=== PATIENT | male | born 1980 | race African-American/Black ===

== ENCOUNTER 2020-02-27 10:54 | Emergency (ER) | payer OTHER, SELFPAY ==
[2020-02-27] VITALS (24 sets, daily range): BP systolic 105–161; BP diastolic 72–97; PULSE 69–101; RESP 10–25; TEMP 36.5; O2SAT 95–100
--- NOTE | ~2020-02-27 | XR_ITS ---
EXAMINATION: XR chest 1V portable INDICATION: Chest pain and cough TECHNIQUE: Portable AP chest at 1140 hours COMPARISON: None available FINDINGS: The lungs are free of acute opacities. There is no pleural effusion or pneumothorax. The ca rdiomediastinal silhouette is normal. The visualized bones and soft tissues are unremarkable. Calcifi ed right paratracheal lymph nodes are consistent with old granulomatous disease. IMPRESSION: 1. No acute cardiopulmonary abnormality. Reviewed, dictated and finalized at location A.
--- NOTE | 2020-02-27 11:25 | ED.CHESTPAIN ---
HPI - Chest Pain General Chief Complaint: Chest Pain Stated Complaint: Chest Pain Time Seen by Provider: 02/27/20 11:08 Source: patient Mode of arrival: ambulatory Limitations: no limitations History of Present Illness HPI narrative: This is a 40 year old male that presents to the ER for chest pain x 3 days. Reports constant sharp upper chest pain. Associated with cough, sore throat. Also reports left lower quadrant abdominal pain and nausea that has been constant as well. Reports he works at [employer] and several coworkers have tested positive for coronavirus. Reports some urinary frequency. Denies fever, shortness of breath, vomiting, diarrhea, dysuria or hematuria. Related Data Home Medications Medication Instructions Recorded Confirmed Jardiance 25 mg PO DAILY 02/27/20 02/27/20 glipizide 10 mg PO BID 02/27/20 02/27/20 lisinopril 40 mg PO DAILY 02/27/20 02/27/20 metformin 1,000 mg PO BID 02/27/20 02/27/20 metoprolol succinate 50 mg PO DAILY 02/27/20 02/27/20 rosuvastatin 40 mg PO HS 02/27/20 02/27/20 Allergies Allergy/AdvReac Type Severity Reaction Status Date / Time No Known Allergies Allergy Verified 02/27/20 11:10 Review of Systems Review of Systems: Narrative: CONSTITUTIONAL: Denies fever ENT: Reports rhinorrhea, congestion, sore throat. Denies otalgia. CARDIOVASCULAR: Reports chest pain. Denies palpitations, or edema. RESPIRATORY: Reports cough. Denies dyspnea. GASTROINTESTINAL: Reports abdominal pain, nausea. Denies vomiting, or diarrhea. GENITOURINARY: Denies dysuria or hematuria. All systems reviewed & are unremarkable except as noted in HPI and below PMFSH Past Medical History Medical History (Updated 02/27/20 @ 15:28 by Lorelei Baxter PA-C) History of asthma History of diabetes mellitus History of hyperlipidemia History of hypertension Social History Social History (Updated 02/27/20 @ 11:36 by Lorelei Baxter PA-C) Smoking status: Never smoker Substance use: never Gender identity (if verbalized by the patient): Male Exam Narrative: Exam Narrative: GENERAL: Well-appearing, obese, and in no acute distress. HEAD: Normocephalic, atraumatic. EYES: EOMI. ENT: Nares clear, no rhinorrhea or epistaxis. Mucous membranes moist. Oropharynx without tonsillar hypertrophy exudate or other lesions. Bilateral TMs pearly jane non-bulging NECK: Supple. No adenopathy or masses. No carotid bruits or JVD CHEST: Clear to auscultation. No respiratory distress. No wheezes rales or rhonchi HEART: Regular rate and rhythm. No murmur heard. Normal peripheral pulses. ABDOMEN: Soft, nontender, nondistended, normal active bowel sounds. EXTREMITIES: Normal range of motion. No edema. SKIN: Warm, dry, no rash. NEURO: No focal deficits. Alert and oriented x3. PSYCH: Normal mood and affect Course Consultations Consultation #1: Spoke with patient's primary care doctor about work-up will follow-up in clinic Date: 02/27/20 Time: 15:25 Vital Signs Vital signs: Vital Signs Pulse Oximetry 100 02/27/20 11:02 Temperature 97.7 F 02/27/20 11:06 Pulse Rate 101 H 02/27/20 14:15 Respiratory Rate 16 02/27/20 14:15 Blood Pressure 158/93 H 02/27/20 13:01 Pulse Oximetry 99 02/27/20 13:15 MDM - Chest Pain MDM Narrative Medical decision making narrative: Patient presents to the emergency department for cold symptoms, chest pain, and abdominal pain x3 days. Patient is afebrile and nontoxic-appearing. Vitals are normal other than mild elevation in blood pressure to systolic in the 150s. CBC is without acute changes. Metabolic panel with elevation in blood glucose to 438. Lactic acid initially elevated to 2.7. Patient given IV fluids and insulin with improvement in blood sugar and normalization of lactic acid. CRP is not elevated. Baseline and 3-hour troponin are not elevated. EKG and chest x-ray without concerning findings. PERC criteria negative. UA without evidence of infection. Beta hydroxybutyrate i
[2020-02-27] MEDS: ONDANSETRON INJ 4 MG/2 ML VIAL IV PUSH (11:38)
[2020-02-27 11:39] LABS: Basophils Percent Auto 0.5 % (0.2-1.2); Eosinophils Absolute Auto 0.1 K/mm3 (0-0.3); Eosinophils Percent Auto 2.6 % (0-4.4); Hematocrit 46.3 % (42.0-52.0); Hemoglobin 15.6 g/dL (14.0-18.0); Immature Granulocyte Absolute 0.01 K/mm3 (0.00-0.031); Immature Granulocyte Percent A 0.2 % (0-0.5); Lymphocytes Absolute Auto 2.01 K/mm3 (0.9-3.2); Lymphocytes Percent Auto 36.7 % (18.3-44.2); Mean Corpuscular HGB Conc 33.7 g/dl (32-36); Mean Corpuscular Hemoglobin 30.5 pg (26-34); Mean Corpuscular Volume 90.6 fl (80-100); Mean Platelet Volume 11.2 fl (7.4-10.4); Monocytes Absolute Auto 0.3 K/mm3 (0.1-0.6); Monocytes Percent Auto 6.2 % (2.6-8.5); Neutrophils Absolute Auto 2.9 K/mm3 (1.3-6.7); Neutrophils Percent Auto 53.8 % (45.5-73.1); Platelet Count Result 272 k/mm3 (150-375); Red Blood Count 5.11 M/mm3 (4.6-6.20); Red Cell Distribution Width 13.9 % (11.5-14.5); White Blood Count 5.5 K/mm3 (4.5-10.0)
[2020-02-27 11:51] LABS: INR 0.9; Partial Thromboplastin Time 27.8 SECONDS (22.3-36.8); Prothrombin Time 11.3 Seconds (11.1-14.7)
[2020-02-27 11:52] LABS: Alanine Aminotransferase 36 U/L (4-50); Albumin Level 4.1 g/dL (3.5-5.1); Alkaline Phosphatase 72 U/L (38-126); Aspartate Amino Transferase 24 U/L (17-59); Bilirubin,Total 0.5 mg/dL (0.2-1.3); Blood Urea Nitrogen 15 mg/dL (9-20); Calcium 8.8 mg/dL (8.4-10.2); Carbon Dioxide 25 mmol/L (22-30); Chloride 101 mmol/L (98-107); Estimated CRCL calculation 117 ml/min; Estimated Glomerular Filt Rate > 60; Glucose 438 mg/dL (75-110); Lactic Acid Reflex 2.7 mmol/L (0.7-2.1); Sodium 136 mmol/L (137-145)
[2020-02-27 11:53] LABS: Add Urine Microscopic? YES; Appearance Urine Clear (Clear); Bilirubin Urine Negative (Negative); Blood Urine Negative (Negative); Color Urine Colorless (Yellow); Glucose Urine UA 3+ mg/dL (Negative); Ketones Urine Negative (Negative); Leukocyte Esterase Ur Negative LEU/UL (Negative); Nitrate Urine Negative (Negative); Protein Urine Negative (Negative); RBC Urine 0-2 /hpf (0-2); Specific Grav Ur 1.023 (1.001-1.035); Urobilinogen Urine Negative mg/dL (<2.0)
[2020-02-27 11:54] LABS: CRP < 0.5 mg/dL (<1.0); Lactate Dehydrogenase 441 U/L (313-618)
[2020-02-27 12:05] LABS: NT Pro B Type Natriuretic Pept 13 PG/ML (5-100); Troponin I < 0.012 ng/mL (0.000-0.034)
--- NOTE | 2020-02-27 12:12 | PC.NURSE ---
called lab to add on beta hydroxy and phos mg
[2020-02-27 12:22] LABS: Magnesium 2.1 mg/dL (1.6-2.3)
[2020-02-27 12:26] LABS: Beta-Hydroxybutyrate/Acetoacetate 0.13 mmol/L (0.02-0.27)
[2020-02-27] MEDS: SODIUM CHLORIDE 0.9% IV 500 ML 999 ML IV CONT (12:31)
[2020-02-27 12:40] LABS: Alveolar/Arterial O2 Gradient 8.5 mmHg; Carboxyhemoglobin 1.3 % THb (0-2.0); Device ROOM AIR; Fractional Inspired Oxygen 21 %; HCO3 ABG 23.3 mEq/l (22.0-26.0); Methemoglobin ABG 0.3 %THb (0-1.5); Modified Allen's Test Pass; Oxygen Content ABG 20.9 %vol (16.0-22.0); Oxygen Saturation ABG 97.3 % (95.0-100.0); Oxyhemoglobin 95.4 % THb (90.0-100.0); PCO2 ABG 38.2 mmHg (35.0-45.0); PO2 ABG 95.5 mmHg (80.0-100.0); PO2 FiO2 Ratio Arterial Blood 4.55 %; Site Drawn LEFT RADIAL; Total Hemoglobin 15.5 g/dL (12.0-18.0); pH ABG 7.404 (7.350-7.450)
[2020-02-27] MEDS: INSULIN HUMAN REGULAR (*BKC) 100 UNITS/ML 15 UNITS IV PUSH (13:33)
[2020-02-27 13:38] LABS: Glucose Point of Care 344 (65-105)
--- NOTE | 2020-02-27 13:48 | ECG_ITS ---
Measurements Intervals [place] Rate: 81 P: 70 [place]: 148 QRS: 66 QRSD: 85 T: 53 QT: 353 QTc: 412 Interpretive Statements SINUS RHYTHM BORDERLINE ST-T WAVE ABNORMALITY- INFERIOR LEADS BASELINE ARTIFACT- I, II, III, AVR, AVL, AVF, V1, V4-V6 BORDERLINE ECG Electronically Signed On 02-27-2020 13:56:05 CDT by Mal Pryor D.O.
--- NOTE | 2020-02-27 14:34 | PC.NURSE ---
BS 243
[2020-02-27 14:35] LABS: Glucose Point of Care 243 (65-105)
[2020-02-27 14:37] LABS: Reflex Lactic Acid Yes or No Add Lactic
[2020-02-27 14:48] LABS: Troponin I < 0.012 ng/mL (0.000-0.034)
[2020-02-28 13:30] LABS: SARS-CoV-2 RNA PCR Negative
== END 2020-02-27 15:57 | disposition home or self-care (01) ==
PROVIDERS: Physician Assistant; Emergency Provider Family Medicine; PCP Internal Medicine Gastroenterology
DX: R07.9 Chest pain, unspecified (principal); R10.32 Left lower quadrant pain; Z20.828 Contact with and (suspected) exposure to other viral communicable diseases; J45.909 Unspecified asthma, uncomplicated; E11.9 Type 2 diabetes mellitus without complications; E78.5 Hyperlipidemia, unspecified; I10 Essential (primary) hypertension; R94.31 Abnormal electrocardiogram [ECG] [EKG]; Z79.84 Long term (current) use of oral hypoglycemic drugs
CPT/HCPCS: 36415; 36600; 71045; 80053; 81001; 82010; 82375; 82728; 82805; 83050; 83605; 83615; 83735; 83880; 84100; 84484; 85025; 85610; 85730; 86140; 87081; 87635; 87804; 87880; 93005; 96361; 96365; 96375; 99284; J0131; J1815; J2405; J7040; U0003

== ENCOUNTER 2023-02-20 07:43 | Emergency (ER) | payer OTHER, SELFPAY ==
--- NOTE | ~2023-02-20 | CT_ITS ---
Noncontrast CT scan of the cervical spine Technique: Multiple contiguous axial [address] images of the cervical spine were obtained and rec onstructed in 2D sagittal and coronal planes on the acquisition scanner. Dose reduction technique was used on this scan by utilizing automated exposure control, adjustment of the mA and/or kV according to patient size. Clinical History: Pain Findings: No fractures or dislocations. There is moderate to advanced degenerative disc narrowing at C5-C6 and C6-C7, with uncovertebral degenerative changes at these levels. There is probable left kenrick ral foraminal narrowing at C5-C6. There are small disc osteophyte complexes at C5-C6 and C6-C7. No pr evertebral soft tissue swelling. Impression: No fracture or subluxation of the cervical spine. Mild degenerative spondylosis, as above. Reviewed, dictated and finalized at [facility]. Impression: No fracture or subluxation of the cervical spine. Mild degenerative spondylosis, as above.
--- NOTE | ~2023-02-20 | CT_ITS ---
Non-contrast Head CT History: Weakness, numbness Technique: Axial non-contrast imaging of the brain was performed. Dose reduction technique was used on this scan by utilizing automated exposure control and iterative reconstruction technique. The dose -length product (DLP) was 605.33 mGy-cm. Findings: There is no evidence of intracranial hemorrhage, mass lesion, or acute infarct. Brain par enchyma appears normal. The ventricles and subarachnoid spaces are normal in size. The calvarium ap pears normal. The visualized paranasal sinuses and mastoid air cells are clear. Impression: No significant abnormality seen. Reviewed, dictated and finalized at location . Impression: No significant abnormality seen.
[2023-02-20 07:51] VITALS: BP 108/57; PULSE 98; RESP 16; TEMP 36.7; O2SAT 100
--- NOTE | 2023-02-20 09:03 | ED.BACK ---
HPI - Back Pain/Injury General Chief Complaint: Back Pain/Injury Stated Complaint: Left side numbness Time Seen by Provider: 02/20/23 08:54 History of Present Illness HPI Narrative: Patient is a 43-year-old male with a history of diabetes, hyperlipidemia, here for evaluation of an episode of numbness and tingling in his left arm associated with sharp shooting pain. Patient states that he was finishing up his shift at work when he noticed this sensation. The pain and paresthesia lasted for about 10 to 15 minutes before resolving without intervention. He did note worsening sensation with movement of his neck. He denied any sensation in his leg, weakness in his arm, chest pain, shortness of breath, headaches or visual changes. Patient has had neck pain for the past 3 weeks, worse with turning his head. He denies any known injury to the neck. He has not taken any medicine for his neck pain. Related Data Home Medications Medication Instructions Recorded Confirmed Jardiance 25 mg PO DAILY 02/27/20 02/27/20 glipizide 10 mg PO BID 02/27/20 02/27/20 lisinopril 40 mg PO DAILY 02/27/20 02/27/20 metformin 1,000 mg PO BID 02/27/20 02/27/20 metoprolol succinate 50 mg PO DAILY 02/27/20 02/27/20 rosuvastatin 40 mg PO HS 02/27/20 02/27/20 Allergies Allergy/AdvReac Type Severity Reaction Status Date / Time No Known Allergies Allergy Verified 02/20/23 08:25 Review of Systems Review of Systems: Gen.: Denies fevers or chills Eyes: Denies eye pain or visual change ENT: Denies congestion Respiratory: Denies shortness of breath or cough CV: Denies chest pain or palpitations GI: Denies abdominal pain nausea, emesis or diarrhea denies burning, urgency, frequency or hematuria Musculoskeletal: Reports neck pain Neuro: Reports numbness and tingling in his left arm Skin: Denies rash Except as documented, all other systems reviewed and negative [facility] Past Medical History Medical History History of asthma History of diabetes mellitus History of hyperlipidemia History of hypertension Social History Social History (Updated 02/27/20 @ 11:36 by Lorelei Baxter PA-C) Smoking status: Never smoker Substance use: never Gender identity (if verbalized by the patient): Male Exam Narrative: APPEARANCE: Well appearing, no pain in distress, well-nourished. Head: Normocephalic and atraumatic. EYES: PERRLA/EOMI, conjunctivae clear NOSE: No nasal drainage EARS: External ear normal in appearance THROAT: Oropharynx is clear. Mucous membranes are moist. NECK: Supple. No adenopathy, no masses. RESPIRATORY: Airway patent, respirations nonlabored. Clear to auscultation bilaterally, no rales, rhonchi, wheezing. CARDIOVASCULAR: Regular rate and rhythm without murmurs, rubs, or gallops. ABDOMINAL: Normoactive bowel sounds. Soft, nontender, nondistended. No rebound tenderness or guarding. MUSCULOSKELETAL: Positive Spurling's test. Patient has paraspinal muscle tenderness along the lower cervical spine. Patient reports pain with range of motion of the left extremity in the shoulder and neck. Extremities are warm and well-perfused. Moves all extremities well. No edema. NEURO: Cranial nerves II through XII intact. Normal speech. No focal neurologic deficits. SKIN: Skin is warm and dry. No rashes. PSYCHIATRIC: Normal affect/mood. Course Vital Signs Vital signs: Vital Signs Temperature 98.1 F 02/20/23 07:51 Pulse Rate 98 02/20/23 07:51 Respiratory Rate 16 02/20/23 07:51 Blood Pressure 108/57 L 02/20/23 07:51 Pulse Oximetry 100 02/20/23 07:51 Oxygen Delivery Room Air 02/20/23 07:51 Temperature 98.1 F 02/20/23 07:51 Pulse Rate 93 02/20/23 09:57 Respiratory Rate 18 02/20/23 09:57 Blood Pressure 106/68 02/20/23 09:57 Pulse Oximetry 100 02/20/23 09:57 Oxygen Delivery Room Air 02/20/23 07:51 MDM - Back Pain/Injury MDM Narrative [facility]
[2023-02-20] MEDS: KETOROLAC 30 MG/ML VIAL (*BKC) IM (09:40)
[2023-02-20 09:44] VITALS: BP 108/68; PULSE 99; RESP 18; O2SAT 100
[2023-02-20 09:57] VITALS: BP 106/68; PULSE 93; RESP 18; O2SAT 100
== END 2023-02-20 09:59 | disposition home or self-care (01) ==
PROVIDERS: Emergency Provider Physician Assistant
DX: M48.02 Spinal stenosis, cervical region (principal); E11.9 Type 2 diabetes mellitus without complications; I10 Essential (primary) hypertension; E78.5 Hyperlipidemia, unspecified; Z79.84 Long term (current) use of oral hypoglycemic drugs
CPT/HCPCS: 70450; 72125; 96372; 99284; J1885

== ENCOUNTER 2023-03-11 06:14 | Observation (INO) | payer OTHER, SELFPAY ==
[2023-03-11] VITALS (43 sets, daily range): BP systolic 87–185; BP diastolic 50–86; PULSE 86–116; RESP 11–21; TEMP 36.3–36.8; O2SAT 92–100; BMI 39.6
--- NOTE | ~2023-03-11 | CT_ITS ---
EXAMINATION: CT brain wo con INDICATION: Headache COMPARISON: 02/20/2023 TECHNIQUE: Standard unenhanced head CT. The dose-length product (DLP) was 605.33 mGy-cm. The mA was a djusted according to patient size. Iterative reconstruction technique was employed. FINDINGS: There is no intracranial hemorrhage, acute infarction, or abnormal mass lesion. The ventric les are normal. There is no abnormal mass effect or midline shift. The jane-white matter differentiat ion is normal. The basal cisterns are patent. The orbits are normal. The paranasal sinuses, mastoids and calvarium are normal. IMPRESSION: 1. No acute intracranial abnormality. Reviewed, dictated and finalized at location A.
--- NOTE | ~2023-03-11 | US_ITS ---
EXAMINATION: US renal BI DATE: 03/12/2023 11:32 INDICATION: Acute kidney injury TECHNIQUE: Multiple grayscale and Doppler ultrasound images of the kidneys were obtained. COMPARISON: None. FINDINGS: The right kidney measures 12.4 x 5.7 x 7.0 cm. The left kidney measures 12.5 x 5.5 x 6.1 cm . The kidneys demonstrate normal parenchymal echogenicity. There is no hydronephrosis. The bladder is normal. IMPRESSION: 1. Normal kidneys without hydronephrosis. Reviewed, dictated and finalized at location F.
[2023-03-11 06:27] LABS: Glucose Point of Care 220 mg/dl (65-105)
--- NOTE | 2023-03-11 06:47 | ECG_ITS ---
Measurements Intervals [place] Rate: 102 P: 55 [place]: 112 QRS: 52 QRSD: 83 T: 19 QT: 344 QTc: 448 Interpretive Statements SINUS TACHYCARDIA WITH SHORT OK INTERVAL BORDERLINE ECG COMPARED TO ECG 02/27/2020 11:02:52 SINUS TACHYCARDIA NOW PRESENT Electronically Signed On 03-16-2023 9:41:42 CDT by Mal Pryor D.O.
[2023-03-11 07:03] LABS: Basophils Percent Auto 0.3 % (0.2-1.2); Eosinophils Percent Auto 0.3 % (0-4.4); Hematocrit 40.6 % (42.0-52.0); Hemoglobin 13.5 g/dL (14.0-18.0); Immature Granulocyte Absolute 0.04 K/mm3 (0.00-0.031); Immature Granulocyte Percent A 0.4 % (0-0.5); Lymphocytes Absolute Auto 1.68 K/mm3 (0.9-3.2); Lymphocytes Percent Auto 18.3 % (18.3-44.2); Mean Corpuscular HGB Conc 33.3 g/dl (32-36); Mean Corpuscular Hemoglobin 31.1 pg (26-34); Mean Corpuscular Volume 93.5 fl (80-100); Mean Platelet Volume 10.4 fl (7.4-10.4); Monocytes Absolute Auto 0.8 K/mm3 (0.1-0.6); Monocytes Percent Auto 8.9 % (2.6-8.5); Neutrophils Absolute Auto 6.6 K/mm3 (1.3-6.7); Neutrophils Percent Auto 71.8 % (45.5-73.1); Platelet Count Result 344 k/mm3 (150-375); Red Blood Count 4.34 M/mm3 (4.6-6.20); Red Cell Distribution Width 13.8 % (11.5-14.5); White Blood Count 9.2 K/mm3 (4.5-10.0)
[2023-03-11 07:13] LABS: Alanine Aminotransferase 33 U/L (6-50); Albumin Level 4.8 g/dL (3.5-5.1); Alkaline Phosphatase 46 U/L (38-126); Anion Gap 13 mmol/L (8-16); Aspartate Amino Transferase 31 U/L (17-59); Bilirubin,Total 0.6 mg/dL (0.2-1.3); Blood Urea Nitrogen 22 mg/dL (9-20); Calcium 9.4 mg/dL (8.4-10.2); Carbon Dioxide 28 mmol/L (22-30); Chloride 96 mmol/L (98-107); Estimated CRCL calculation 41 ml/min; Estimated Glomerular Filt Rate 26; Glucose 208 mg/dL (65-110); Magnesium 2.1 mg/dL (1.6-2.3); Phosphorus 3.1 mg/dL (2.5-4.5); Sodium 137 mmol/L (137-145)
--- NOTE | 2023-03-11 07:56 | ED.DIZZY ---
HPI - Dizziness General Chief Complaint: Dizziness Stated Complaint: lethargy Time Seen by Provider: 03/11/23 07:00 History of Present Illness HPI Narrative: 43-year-old male with history of diabetes presenting to the emergency department for evaluation of increased dizziness. Patient states over the last few months he has had some increased dizziness and lightheadedness. Patient states while he was at work he felt the symptoms had been worsening. Patient reports that he has had decreased p.o. intake but did have some Gatorade 0 at work. Patient denies any associated chest pain or shortness of breath. Patient states he does have a history of diabetes and states any shortness of breath that he does have intermittently he believes is secondary to this. Patient states he has had no decrease in his urination. Patient states his blood sugars were 200 today and states this is high for him. Related Data Home Medications Medication Instructions Recorded Confirmed Jardiance 25 mg PO DAILY 02/27/20 02/27/20 glipizide 10 mg PO BID 02/27/20 02/27/20 lisinopril 40 mg PO DAILY 02/27/20 02/27/20 metformin 1,000 mg PO BID 02/27/20 02/27/20 metoprolol succinate 50 mg PO DAILY 02/27/20 02/27/20 rosuvastatin 40 mg PO HS 02/27/20 02/27/20 Allergies Allergy/AdvReac Type Severity Reaction Status Date / Time No Known Allergies Allergy Verified 03/11/23 06:52 Review of Systems Review of Systems: All systems reviewed & are unremarkable except as noted in HPI and below PMFSH Past Medical History Medical History History of asthma History of diabetes mellitus History of hyperlipidemia History of hypertension Surgical History Surgical History H/O wisdom tooth extraction Family History Family History Father Diabetes mellitus Asthma Grandparent Diabetes mellitus Grandparent Hypertension Social History Social History (Updated 03/11/23 @ 14:35 by Fariba Potter NP) Social History: 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 He is and lives with and daughter. Code status : full code Smoking status: Never smoker Substance use: never Gender identity (if verbalized by the patient): Male Exam Narrative: APPEARANCE: Well appearing, no pain, no distress, well-nourished. HEAD: normocephalic, atraumatic. EYES: PERRLA/EOMI, conjunctivae clear. NOSE: Normal no drainage NECK: Supple. No adenopathy, no masses. RESPIRATORY: Airway patent, respirations nonlabored. Clear to auscultation bilaterally, no rales, rhonchi, wheezing. CARDIOVASCULAR: Regular rate and rhythm without murmurs rubs or gallops. ABDOMINAL: Soft, nontender, nondistended, normal bowel sounds MUSCULOSKELETAL: Moves all extremities. Strength/ROM intact, No edema, No calf tenderness. NEURO: Alert. Cranial nerves II through XII intact. Grossly intact SKIN: Warm, dry. Normal Color Course Course Emergency Course: 43-year-old male presented the ED for evaluation of headache lightheaded dizziness. Patient was hypotensive upon arrival to the ED and patient does have OLIVIA on his labs. Head CT was ordered to evaluate for intracranial abnormality and head CT was read as negative. Patient is afebrile with no leukocytosis. Patient hemoglobin is 13.5. Patient does have a significant OLIVIA with a creatinine of 3.2. Patient's typical creatinine is around 1.1. Patient's previous blood sugars on file here are in the 350-300 range. Patient was updated on the plan for treatment and additional labs. All questions concerns were addressed after this time. Patient was rehydrated 2 L of normal saline and repeat BMP still shows an elevated creatinine/OLIVIA. Patient was amenable to staying for further work-up. Case was discussed with hospitalist and patient was acce
[2023-03-11] MEDS: SODIUM CHLORIDE 0.9% IV 1,000 ML 999 ML IV CONT ×2 (08:03→09:12)
[2023-03-11 08:04] LABS: Amphetamine Screen Urine Negative (Negative); Barbiturate Screen Urine Negative (Negative); Benzodiazepines Screen Urine Negative (Negative); Cannabinoid Screen Urine Negative (Negative); Cocaine Screen Urine Negative (Negative); Methadone Screen Urine Negative (Negative); Opiate Screen Urine Negative (Negative); Phencyclidine Screen Urine Negative (Negative)
[2023-03-11 08:11] LABS: Appearance Urine Cloudy (Clear); Bacteria Urine None Seen /hpf; Bilirubin Urine Negative (Negative); Blood Urine Negative (Negative); Color Urine Yellow (Yellow); Glucose Urine UA 3+ mg/dL (Negative); Ketones Urine Negative (Negative); Leukocyte Esterase Ur Negative LEU/UL (Negative); Mucus Urine Present /lpf; Nitrate Urine Negative (Negative); Non Pathogenic Casts >20; Protein Urine 2+ mg/dL (Negative); RBC Urine 0-2 /hpf (0-2); Squamous Epithelial Cell Urine Moderate /hpf (Few); WBC Urine 0-5 /hpf
[2023-03-11 08:13] LABS: Add Urine Microscopic? YES
[2023-03-11 09:03] LABS: Glucose Point of Care 134 mg/dl (65-105)
[2023-03-11 10:50] LABS: Glucose Point of Care 131 mg/dl (65-105)
[2023-03-11 11:43] LABS: Anion Gap 9 mmol/L (8-16); Blood Urea Nitrogen 22 mg/dL (9-20); Calcium 8.6 mg/dL (8.4-10.2); Carbon Dioxide 30 mmol/L (22-30); Chloride 98 mmol/L (98-107); Estimated CRCL calculation 53 ml/min; Estimated Glomerular Filt Rate 34; Glucose 113 mg/dL (65-110); Potassium 3.8 mmol/L (3.4-5.0); Sodium 137 mmol/L (137-145)
--- NOTE | 2023-03-11 12:48 | PM.IMHP ---
H&P: HPI History of Present Illness Date/Time: 03/11/23 12:48 Chief Complaint: Dizziness and lethargy Narrative: This is a 43-year-old male patient who has a history of diabetes. The patient stated that he has an Omnipod and a DEXAcom. He stated that his alarm some not gone off on his DEXA calm. However he notices that his sugars to get low at times. The patient stated that over the last few months he has had some increased dizziness and lightheadedness. The patient states while he was at work he felt symptoms and they have been worsening. The patient stated that he had decreased oral intake but he did have some Gatorade 0 at work. The patient stated that his blood sugars were 200 today and that is usually high for him. He denied any chest pain fever chills or shortness of breath. His H&H is low at 13.5 and 40.6. His BUN initially was 22 and then 3.2. The patient was given IV fluids and his BUN was 22 and creatinine came down to 2.5. With a previous normal baseline. Blood sugars were noted to be 208 and now was 135. Urine toxicology screen was normal. Head CT no acute intracranial abnormality. The patient is being admitted to observation status on the date of service of 03/11/2023 Review of Systems Review of Systems: All systems reviewed & are unremarkable except as noted in HPI and below Constitutional: Constitutional: Reports as per HPI and Reports no additional constitutional complaints Eyes: Eyes: Reports as per HPI and Reports no additional eye complaints ENT: Reports system reviewed and no additional complaints, except as documented and Reports Normal hearing present Cardiovascular: Cardiovascular: Reports no additional cardiovascular complaints Respiratory: Respiratory: Reports no additional respiratory complaints and Reports no additional respiratory complaints Gastrointestinal: Gastrointestinal: Reports as per HPI and Reports no additional gastrointestinal complaints Musculoskeletal: Musculoskeletal: Reports no additional musculoskeletal complaints Integumentary/Breasts: Skin/Breast: Reports system reviewed and no additional complaints, except as docu and Reports as per HPI Neurologic: Reports system reviewed and no additional complaints, except as documented, Reports as per HPI and Reports Normal hearing present Psychiatric: Psychiatric: Reports no additional psychiatric complaints and Reports as per HPI Endocrine: Endocrine: Reports no additional endocrine complaints Hematologic/Lymphatic: Hematologic/Lymphatic: Reports no additional hematologic/lymphatic complaints Allergic/Immunologic: Allergic/Immunologic: Reports no additional allergic/immunologic complaints [facility] Past Medical History Medical History History of asthma History of diabetes mellitus History of hyperlipidemia History of hypertension Surgical History Surgical History H/O wisdom tooth extraction Family History Family History Father Diabetes mellitus Asthma Grandparent Diabetes mellitus Grandparent Hypertension Social History Social History (Updated 03/11/23 @ 14:35 by Fariba Potter NP) Social History: 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 He is and lives with and daughter. Code status : full code Smoking status: Never smoker Substance use: never Gender identity (if verbalized by the patient): Male Meds Home Medications and Allergies Home Medications Medication Instructions Recorded Confirmed Type Jardiance 25 mg PO DAILY 02/27/20 02/27/20 History glipizide 10 mg PO BID 02/27/20 02/27/20 History lisinopril 40 mg PO DAILY 02/27/20 02/27/20 History metformin 1,000 mg PO BID 02/27/20 02/27/20 History metoprolol succinate 50 mg PO DAILY 02/27/20 02/27/20 History rosuvastatin 40 mg P
[2023-03-11] MEDS: SODIUM CHLORIDE 0.9% IV 1,000 ML 500 ML IV CONT (13:08)
[2023-03-11] MEDS: ACETAMINOPHEN 500 MG TABLET 1000 MG PO (13:08)
[2023-03-11 13:50] LABS: Glucose Point of Care 135 mg/dl (65-105)
--- NOTE | 2023-03-11 14:15 | PC.NURSE ---
Meal tray ordered at this time.
[2023-03-11] MEDS: SODIUM CHLORIDE 0.9% IV 1,000 ML 125 ML IV CONT (15:34)
--- NOTE | 2023-03-11 16:46 | ADMGEN ---
This patient, Ethan Grady, was admitted to 2 Medical Room 252-01. Patient/family oriented to hospital policies and general routines including ID bracelet, bed and alarms, visiting hours, pain management, procedures, bathroom and other care routines, personal items, smoking policy, room service/diet, and visiting hours. Information on how to activate the Rapid Response Team has been discussed. Patient/Family are encouraged to report perceived risks to care and to ask questions if they do not understand what they are told or what they should do. Report taken from Mary
[2023-03-11 17:42] LABS: Glucose Point of Care 118 mg/dl (65-105)
--- NOTE | 2023-03-11 19:15 | PC.NURSE ---
Patient has own dexcom (R abdomen) and omnipod ( R arm). Went over consent and policy for patient to use both during stay. Notified Fariba Potter that patient capable of using own CGM/insulin pump and home insulin, which she stated is okay. Patient current basal rate is 2.2, from midnight until 8 am it changes to 1.8. Patient uses humalog insulin from home. Went over self management, patient aware he is responsible for supplies as well as paper charting. Patient and physician agreeable.
[2023-03-11 21:19] LABS: Glucose Point of Care 138 mg/dl (65-105)
[2023-03-12] VITALS (13 sets, daily range): BP systolic 119–146; BP diastolic 68–89; PULSE 90–111; RESP 16–18; TEMP 36.1–37.1; O2SAT 95–98
[2023-03-12 06:16] LABS: Basophils Percent Auto 0.4 % (0.2-1.2); Eosinophils Absolute Auto 0.1 K/mm3 (0-0.3); Hematocrit 37.9 % (42.0-52.0); Hemoglobin 12.8 g/dL (14.0-18.0); Immature Granulocyte Absolute 0.02 K/mm3 (0.00-0.031); Immature Granulocyte Percent A 0.3 % (0-0.5); Lymphocytes Absolute Auto 2.07 K/mm3 (0.9-3.2); Mean Corpuscular HGB Conc 33.8 g/dl (32-36); Mean Corpuscular Hemoglobin 31.2 pg (26-34); Mean Corpuscular Volume 92.4 fl (80-100); Mean Platelet Volume 9.7 fl (7.4-10.4); Monocytes Absolute Auto 0.6 K/mm3 (0.1-0.6); Monocytes Percent Auto 8.7 % (2.6-8.5); Neutrophils Absolute Auto 4.1 K/mm3 (1.3-6.7); Neutrophils Percent Auto 59.6 % (45.5-73.1); Platelet Count Result 281 k/mm3 (150-375); Red Cell Distribution Width 13.8 % (11.5-14.5); White Blood Count 6.9 K/mm3 (4.5-10.0)
[2023-03-12 06:26] LABS: Alanine Aminotransferase 31 U/L (6-50); Albumin Level 4.2 g/dL (3.5-5.1); Alkaline Phosphatase 43 U/L (38-126); Anion Gap 8 mmol/L (8-16); Aspartate Amino Transferase 38 U/L (17-59); Bilirubin,Total 0.6 mg/dL (0.2-1.3); Blood Urea Nitrogen 18 mg/dL (9-20); Calcium 9.2 mg/dL (8.4-10.2); Carbon Dioxide 29 mmol/L (22-30); Chloride 103 mmol/L (98-107); Estimated CRCL calculation 76 ml/min; Estimated Glomerular Filt Rate 57; Glucose 120 mg/dL (65-110); Magnesium 2.1 mg/dL (1.6-2.3); Potassium 3.9 mmol/L (3.4-5.0); Sodium 140 mmol/L (137-145)
[2023-03-12 07:11] LABS: Hemoglobin A1C 8.5 % (<5.7)
[2023-03-12 07:58] LABS: Glucose Point of Care 108 mg/dl (65-105)
[2023-03-12 09:51] LABS: Glucose Point of Care 150 mg/dl (65-105)
[2023-03-12] MEDS: ROSUVASTATIN 10 MG TABLET 40 MG PO (09:51)
[2023-03-12] MEDS: GABAPENTIN 300 MG CAPSULE PO ×3 (09:51→17:18)
[2023-03-12] MEDS: METOPROLOL SUCCINATE EXT REL 100 MG TABCR PO (09:51)
[2023-03-12 11:51] LABS: Glucose Point of Care 128 mg/dl (65-105)
[2023-03-12] MEDS: SODIUM CHLORIDE 0.9% IV 1,000 ML 125 ML IV CONT ×2 (12:23→20:37)
--- NOTE | 2023-03-12 14:06 | PM.IMPN ---
Progress Note: A&P Assessment and Plan (1) OLIVIA (acute kidney injury): Code(s): N17.9 - Acute kidney failure, unspecified Status: Acute Assessment and Plan: Initially patient's BUN was 3.20 with an estimated GFR of 26 and BUN of 22. With IV fluids his creatinine came down to 2.5 with an estimated GFR of 34. Continue with IV fluid Renal ultrasound pending I believe this is pre renal azotemia. However if there is no improvement then may consider Nephrology consult. Hold lisinopril and metformin. (2) History of asthma: Code(s): Z87.09 - Personal history of other diseases of the respiratory system Status: Acute Assessment and Plan: PRn albuterol (3) History of diabetes mellitus: Code(s): Z86.39 - Personal history of other endocrine, nutritional and metabolic disease Status: Acute Assessment and Plan: The patient has an Omnipod and a DEXA calm. He stated that he wanted us to continue to monitor his blood sugar and that he would take care of his own insulin. The patient's blood sugars are typically less than 200s according to the patient. However he stated that his last A1c was 8.8. repeat A1c was 8.5. Hold metformin due to the acute renal failure. Hold Jardiance due to acute renal failure Jardiance may increase creatinine. (4) History of hyperlipidemia: Code(s): Z86.39 - Personal history of other endocrine, nutritional and metabolic disease Status: Acute Assessment and Plan: Continue with rosuvastatin (5) History of hypertension: Code(s): Z86.79 - Personal history of other diseases of the circulatory system Status: Acute Assessment and Plan: Hold lisinopril due to the acute renal failure Continue with metoprolol Current blood pressure is 119/56. (6) Orthostatic hypotension: Code(s): I95.1 - Orthostatic hypotension Status: Acute Assessment and Plan: Orthostatic positive on 03/11/2023. After receiving IV fluid orthostatics are now negative. Continue with IV fluid The patient came in complaining of dizziness. Subjective Date/time seen: 03/12/23 14:06 Interval history: Patient on the phone with his mother when I entered the room. Patient's mother less than an on exam and interview per patient's request. Patient stated that he has had dizziness and describing as the room is spinning every day for the past 2 months. Patient does not associate the dizziness with changes in position. Patient's mother stated that he was having some left-sided flank pain that she believed was associated with his kidneys. Patient was found to have an OLIVIA on presentation to the hospital. Ever since receiving fluids and creatinine trending down patient has not experienced any more bouts of dizziness. Patient denies history of kidney stones or dysuria. Patient's mother states that he was urinating only 1 time a day before arrival to the ED. Review of Systems Review of Systems: All systems reviewed & are unremarkable except as noted in HPI and below Exam Narrative: GENERAL: Comfortable, no acute distress HENMT: moist mucous membranes EYES: EOM intact b/l NECK: no lymphadenopathy RESPIRATORY: clear to auscultation CARDIO: RRR GI: soft, nontender, bowel sounds present SKIN: no rashes EXTREMITIES: no edema, redness or tenderness Objective Data Vital Signs Vital Signs: Vital Signs - 24 hr 03/11/23 14:16 03/11/23 14:32 03/11/23 16:01 Temperature Pulse Rate 89 92 88 Respiratory Rate 15 15 Blood Pressure 115/73 111/50 L Pulse Oximetry 98 Oxygen Delivery 03/11/23 17:50 03/11/23 19:09 03/11/23 19:54 Temperature 97.8 F Pulse Rate 92 90 Respiratory Rate 18 Blood Pressure 128/65 Pulse Oximetry 97 Oxygen Delivery Room Air 03/11/23 20:00 03/11/23 20:08 03/11/23 20:00 Temperature 98.2 F 97.6 F Pulse Rate 1
[2023-03-12 16:52] LABS: Glucose Point of Care 147 mg/dl (65-105)
[2023-03-12 21:47] LABS: Glucose Point of Care 149 mg/dl (65-105)
[2023-03-13] VITALS (10 sets, daily range): BP systolic 114–161; BP diastolic 68–87; PULSE 15–104; RESP 18–20; TEMP 36.2–37; O2SAT 97–98; BMI 39.6
[2023-03-13 05:56] LABS: Hematocrit 36.4 % (42.0-52.0); Hemoglobin 12.3 g/dL (14.0-18.0); Mean Corpuscular HGB Conc 33.8 g/dl (32-36); Mean Corpuscular Hemoglobin 31.4 pg (26-34); Mean Corpuscular Volume 92.9 fl (80-100); Mean Platelet Volume 10.2 fl (7.4-10.4); Platelet Count Result 275 k/mm3 (150-375); Red Blood Count 3.92 M/mm3 (4.6-6.20); Red Cell Distribution Width 13.8 % (11.5-14.5); White Blood Count 6.2 K/mm3 (4.5-10.0)
[2023-03-13 06:10] LABS: Alanine Aminotransferase 33 U/L (6-50); Albumin Level 4.1 g/dL (3.5-5.1); Alkaline Phosphatase 43 U/L (38-126); Anion Gap 6 mmol/L (8-16); Aspartate Amino Transferase 33 U/L (17-59); Bilirubin,Total 0.6 mg/dL (0.2-1.3); Blood Urea Nitrogen 17 mg/dL (9-20); Calcium 9.2 mg/dL (8.4-10.2); Carbon Dioxide 29 mmol/L (22-30); Chloride 103 mmol/L (98-107); Estimated CRCL calculation 87 ml/min; Estimated Glomerular Filt Rate > 60; Glucose 121 mg/dL (65-110); Potassium 3.7 mmol/L (3.4-5.0); Sodium 138 mmol/L (137-145)
[2023-03-13] MEDS: SODIUM CHLORIDE 0.9% IV 1,000 ML 125 ML IV CONT ×3 (06:28→22:45)
[2023-03-13] MEDS: GABAPENTIN 300 MG CAPSULE PO ×3 (08:50→17:22)
[2023-03-13 08:51] LABS: Glucose Point of Care 119 mg/dl (65-105)
[2023-03-13] MEDS: METOPROLOL SUCCINATE EXT REL 100 MG TABCR PO (08:51)
[2023-03-13] MEDS: ROSUVASTATIN 10 MG TABLET 40 MG PO (08:51)
[2023-03-13 11:51] LABS: Glucose Point of Care 135 mg/dl (65-105)
--- NOTE | 2023-03-13 14:48 | P.PNIM_ITS ---
Progress Note: A&P Assessment and Plan (1) OLIVIA (acute kidney injury): Code(s): N17.9 - Acute kidney failure, unspecified Status: Acute Assessment and Plan: Initially patient's BUN was 3.20 with an estimated GFR of 26 and BUN of 22. With IV fluids his creatinine came down to 2.5 with an estimated GFR of 34. * Continue with IV fluid * Renal ultrasound Revealing normal kidneys * Creatinine continues to trend down. Continue to monitor. * Hold lisinopril and metformin. * Dehydration likely cause of patient's OLIVIA and orthostatic hypotension causing dizziness. (2) Orthostatic hypotension: Code(s): I95.1 - Orthostatic hypotension Status: Resolved Assessment and Plan: * Orthostatic positive on 03/11/2023. * After receiving IV fluid orthostatics are now negative. * Continue with IV fluid * The patient came in complaining of dizziness. (3) History of hypertension: Code(s): Z86.79 - Personal history of other diseases of the circulatory system Status: Acute Assessment and Plan: * Hold lisinopril due to the acute renal failure * Continue with metoprolol * Advise patient to use blood pressure cuff at home and record his daily pressures. * Could possibly need medication adjustment due to his OLIVIA and orthostatic hypotension. * Would not advise starting chlorthalidone on this patient (4) History of diabetes mellitus: Code(s): Z86.39 - Personal history of other endocrine, nutritional and metabolic disease Status: Acute Assessment and Plan: The patient has an Omnipod and a DEXA calm. * He stated that he wanted us to continue to monitor his blood sugar and that he would take care of his own insulin. * The patient's blood sugars are typically less than 200s according to the patient. * However he stated that his last A1c was 8.8. repeat A1c was 8.5. * Hold metformin due to the acute renal failure. * Hold Jardiance due to acute renal failure Jardiance may increase creatinine. (5) History of asthma: Code(s): Z87.09 - Personal history of other diseases of the respiratory system Status: Acute Assessment and Plan: PRn albuterol (6) History of hyperlipidemia: Code(s): Z86.39 - Personal history of other endocrine, nutritional and metabolic disease Status: Acute Assessment and Plan: Continue with rosuvastatin Subjective Date/time seen: 03/13/23 14:48 Interval history: Patient is doing well with no new complaints. Per nursing staff He has a toothache although it is advised to him to follow-up with the dentist as an outpatient. Patient has not mentioned toothache to me personally. Patient states that his lower back pain /flank has improved. Patient has been urinating more frequently. He denies chest pain, shortness a breath and visual changes. He has not had any more dizziness since he has arrived to the hospital floor. Review of Systems Review of Systems: All systems reviewed & are unremarkable except as noted in HPI and below Exam Narrative: GENERAL: Comfortable, no acute distress HENMT: moist mucous membranes EYES: EOM intact b/l NECK: no lymphadenopathy RESPIRATORY: clear to auscultation CARDIO: RRR GI: soft, nontender, bowel sounds present SKIN: no rashes EXTREMITIES: no edema, redness or tenderness
--- NOTE | 2023-03-13 14:48 | PM.IMPN ---
Progress Note: A&P Assessment and Plan (1) OLIVIA (acute kidney injury): Code(s): N17.9 - Acute kidney failure, unspecified Status: Acute Assessment and Plan: Initially patient's BUN was 3.20 with an estimated GFR of 26 and BUN of 22. With IV fluids his creatinine came down to 2.5 with an estimated GFR of 34. Continue with IV fluid Renal ultrasound Revealing normal kidneys Creatinine continues to trend down. Continue to monitor. Hold lisinopril and metformin. Dehydration likely cause of patient's OLIVIA and orthostatic hypotension causing dizziness. (2) Orthostatic hypotension: Code(s): I95.1 - Orthostatic hypotension Status: Resolved Assessment and Plan: Orthostatic positive on 03/11/2023. After receiving IV fluid orthostatics are now negative. Continue with IV fluid The patient came in complaining of dizziness. (3) History of hypertension: Code(s): Z86.79 - Personal history of other diseases of the circulatory system Status: Acute Assessment and Plan: Hold lisinopril due to the acute renal failure Continue with metoprolol Advise patient to use blood pressure cuff at home and record his daily pressures. Could possibly need medication adjustment due to his OLIVIA and orthostatic hypotension. Would not advise starting chlorthalidone on this patient (4) History of diabetes mellitus: Code(s): Z86.39 - Personal history of other endocrine, nutritional and metabolic disease Status: Acute Assessment and Plan: The patient has an Omnipod and a DEXA calm. He stated that he wanted us to continue to monitor his blood sugar and that he would take care of his own insulin. The patient's blood sugars are typically less than 200s according to the patient. However he stated that his last A1c was 8.8. repeat A1c was 8.5. Hold metformin due to the acute renal failure. Hold Jardiance due to acute renal failure Jardiance may increase creatinine. (5) History of asthma: Code(s): Z87.09 - Personal history of other diseases of the respiratory system Status: Acute Assessment and Plan: PRn albuterol (6) History of hyperlipidemia: Code(s): Z86.39 - Personal history of other endocrine, nutritional and metabolic disease Status: Acute Assessment and Plan: Continue with rosuvastatin Subjective Date/time seen: 03/13/23 14:48 Interval history: Patient is doing well with no new complaints. Per nursing staff He has a toothache although it is advised to him to follow-up with the dentist as an outpatient. Patient has not mentioned toothache to me personally. Patient states that his lower back pain /flank has improved. Patient has been urinating more frequently. He denies chest pain, shortness a breath and visual changes. He has not had any more dizziness since he has arrived to the hospital floor. Review of Systems Review of Systems: All systems reviewed & are unremarkable except as noted in HPI and below Exam Narrative: GENERAL: Comfortable, no acute distress HENMT: moist mucous membranes EYES: EOM intact b/l NECK: no lymphadenopathy RESPIRATORY: clear to auscultation CARDIO: RRR GI: soft, nontender, bowel sounds present SKIN: no rashes EXTREMITIES: no edema, redness or tenderness Objective Data Vital Signs Vital Signs: Vital Signs - 24 hr 03/12/23 14:58 03/12/23 14:59 03/12/23 19:57 Temperature 97.0 F L 97.0 F L 98.1 F Pulse Rate 90 90 95 Respiratory Rate 16 16 18 Blood Pressure 142/87 H 146/78 H 122/76 Pulse Oximetry 98 98 97 Oxygen Delivery 03/12/23 19:59 03/12/23 20:02 03/12/23 22:00 Temperature 98.2 F 98.4 F 98.8 F Pulse Rate 98 103 H 94 Respiratory Rate 18 18 18 Blood Pressure 133/89 143/75 H 141/70 H Pulse Oximetry 95 96 97 Oxygen Delivery 03/13/23 06:00 03/13/23 08:51 03/13/23 08:51 Temperatu
[2023-03-13 17:12] LABS: Glucose Point of Care 110 mg/dl (65-105)
[2023-03-13 20:34] LABS: Glucose Point of Care 137 mg/dl (65-105)
[2023-03-14 05:38] LABS: Hematocrit 35.1 % (42.0-52.0); Hemoglobin 11.7 g/dL (14.0-18.0); Mean Corpuscular HGB Conc 33.3 g/dl (32-36); Mean Corpuscular Hemoglobin 30.6 pg (26-34); Mean Corpuscular Volume 91.9 fl (80-100); Mean Platelet Volume 9.8 fl (7.4-10.4); Platelet Count Result 279 k/mm3 (150-375); Red Blood Count 3.82 M/mm3 (4.6-6.20); Red Cell Distribution Width 13.5 % (11.5-14.5); White Blood Count 6.3 K/mm3 (4.5-10.0)
[2023-03-14 05:47] LABS: Alanine Aminotransferase 36 U/L (6-50); Alkaline Phosphatase 44 U/L (38-126); Anion Gap 8 mmol/L (8-16); Aspartate Amino Transferase 30 U/L (17-59); Bilirubin,Total 0.6 mg/dL (0.2-1.3); Blood Urea Nitrogen 16 mg/dL (9-20); Calcium 9.2 mg/dL (8.4-10.2); Carbon Dioxide 27 mmol/L (22-30); Chloride 103 mmol/L (98-107); Estimated CRCL calculation 87 ml/min; Estimated Glomerular Filt Rate > 60; Glucose 124 mg/dL (65-110); Potassium 3.6 mmol/L (3.4-5.0); Sodium 138 mmol/L (137-145)
[2023-03-14] MEDS: SODIUM CHLORIDE 0.9% IV 1,000 ML 125 ML IV CONT (06:16)
[2023-03-14 06:40] VITALS: BP 126/81; PULSE 87; RESP 21; TEMP 36.3; O2SAT 100
[2023-03-14] MEDS: ACETAMINOPHEN 325 MG TABLET 650 MG PO (08:11)
[2023-03-14 08:12] VITALS: PULSE 84
[2023-03-14] MEDS: METOPROLOL SUCCINATE EXT REL 100 MG TABCR PO (08:12)
[2023-03-14] MEDS: ROSUVASTATIN 10 MG TABLET 40 MG PO (08:12)
[2023-03-14] MEDS: GABAPENTIN 300 MG CAPSULE PO (08:12)
[2023-03-14 08:36] LABS: Glucose Point of Care 121 mg/dl (65-105)
--- NOTE | 2023-03-14 11:06 | PM.DS ---
DS: Admitting Diagnosis Discharge Date 03/14/23 Admitting Diagnosis Dehydration DS: Discharge Diagnosis Discharge Diagnosis (1) OLIVIA (acute kidney injury): Code(s): N17.9 - Acute kidney failure, unspecified Status: Acute Assessment and Plan: Initially patient's BUN was 3.20 with an estimated GFR of 26 and BUN of 22. With IV fluids his creatinine came down to 2.5 with an estimated GFR of 34. Continue with IV fluid Renal ultrasound Revealing normal kidneys Creatinine continues to trend down. Continue to monitor. Hold lisinopril and metformin during hospital stay Dehydration likely cause of patient's OLIVIA and orthostatic hypotension causing dizziness. (2) Orthostatic hypotension: Code(s): I95.1 - Orthostatic hypotension Status: Resolved Assessment and Plan: Orthostatic positive on 03/11/2023. After receiving IV fluid orthostatics are now negative. Continue with IV fluid The patient came in complaining of dizziness. (3) History of hypertension: Code(s): Z86.79 - Personal history of other diseases of the circulatory system Status: Acute Assessment and Plan: Hold lisinopril due to the acute renal failure Continue with metoprolol Advise patient to use blood pressure cuff at home and record his daily pressures. Could possibly need medication adjustment due to his OLIVAI and orthostatic hypotension. Would not advise starting chlorthalidone on this patient (4) History of diabetes mellitus: Code(s): Z86.39 - Personal history of other endocrine, nutritional and metabolic disease Status: Acute Assessment and Plan: The patient has an Omnipod and a DEXA calm. He stated that he wanted us to continue to monitor his blood sugar and that he would take care of his own insulin. The patient's blood sugars are typically less than 200s according to the patient. However he stated that his last A1c was 8.8. repeat A1c was 8.5. Hold metformin due to the acute renal failure. Hold Jardiance due to acute renal failure Jardiance may increase creatinine. (5) History of asthma: Code(s): Z87.09 - Personal history of other diseases of the respiratory system Status: Acute Assessment and Plan: PRn albuterol (6) History of hyperlipidemia: Code(s): Z86.39 - Personal history of other endocrine, nutritional and metabolic disease Status: Acute Assessment and Plan: Continue with rosuvastatin DS: Summary Hospital Course Hospital Course: this is a 43-year-old male with a past medical history of diabetes, hyperlipidemia and hypertension that presents to the ED on 03/11/2023 with chief complaint of dizziness and lightheadedness. Patient has had the symptoms every day for the past 2 months and states that he has had decreased oral intake, urination approximately 1 time a day and left flank pain. Patient was found to have a BUN and creatinine of 22/3.2. He was given IV fluids and BUN and creatinine trended down. Patient does have a DEXAcom he monitors his own blood sugars. urine tox screen was normal, CT head no acute intracranial abnormality and UA revealing dehydration. Patient was found to be positively orthostatic. Patient was admitted and started on IV fluids. Patient received IV fluids for 2 days and this resulted in creatinine to return to baseline. Three years ago patient had a creatinine of 0.09. I asked patient to see his previous my chart labs and this showed that patient's baseline is between 1.4 in 1.6. On day of discharge patient's creatinine is 1.4. I discussed with patient that starting chlorthalidone could cause as kidney function to decline again as well as increased dehydration. Advised talking to his doctor before starting this medication. Patient had not had dizziness since he became rehydrated. Orthostatic negative after IV fluid hydration. On t
== END 2023-03-14 12:25 | disposition home or self-care (01) ==
LOC: ANHED 12:57 → ANH3MEDSUR 13:51 → ANH2MED 16:00
PROVIDERS: Internal Medicine Critical Care Medicine; Nurse Practitioner; Preventive Medicine Aerospace Medicine; Admitting Provider Internal Medicine; Emergency Provider Emergency Medicine; Visit Provider Internal Medicine
DX: N17.9 Acute kidney failure, unspecified (principal); I95.1 Orthostatic hypotension; R42 Dizziness and giddiness; R51.9 Headache, unspecified; E11.65 Type 2 diabetes mellitus with hyperglycemia; R06.02 Shortness of breath; J45.909 Unspecified asthma, uncomplicated; I10 Essential (primary) hypertension; R00.0 Tachycardia, unspecified; E66.3 Overweight; Z68.39 Body mass index [BMI] 39.0-39.9, adult; D64.9 Anemia, unspecified; E78.5 Hyperlipidemia, unspecified; I45.9 Conduction disorder, unspecified; Z86.79 Personal history of other diseases of the circulatory system; Z87.09 Personal history of other diseases of the respiratory system; Z86.39 Personal history of other endocrine, nutritional and metabolic disease; Z79.84 Long term (current) use of oral hypoglycemic drugs; Z79.899 Other long term (current) drug therapy; Z83.3 Family history of diabetes mellitus; Z82.5 Family history of asthma and other chronic lower respiratory diseases; Z82.49 Family history of ischemic heart disease and other diseases of the circulatory system
CPT/HCPCS: 36415; 70450; 76775; 80048; 80053; 80307; 81001; 82010; 82948; 83036; 83735; 84100; 84443; 85025; 85027; 93005; 96360; 96361; 99285; A9270; G0378; J7030